=== PATIENT | female | born 1980 | race Caucasian/White ===

== ENCOUNTER 2017-04-21 12:13 | Emergency (ER) | payer BC, OTHER ==
--- NOTE | 2017-04-21 12:58 | ED ---
SOB HPI - General Chief Complaint: Shortness of Breath Stated Complaint: SOB/Hands Tingling Time Seen by Provider: 04/21/17 12:30 Source: patient Mode of arrival: ambulatory Limitations: no limitations - History of Present Illness MD Complaint: shortness of breath Onset/Timin -: hour(s) Severity: moderate Quality: other (Cannot take a deep breath) Consistency: constant Improves With: rest Worsens With: nothing Context: smoke/fume exposure Treatments Prior to Arrival: none - Related Data Home Oxygen Therapy: No Home Medications Medication Instructions Recorded Confirmed Fluconazole [Diflucan] 150 mg PO Q48H 04/21/17 04/21/17 Multivitamins, Thera [Multivitamin 1 tab PO DAILY 04/21/17 04/21/17 (formulary)] metroNIDAZOLE [Flagyl] 500 mg PO BID 04/21/17 04/21/17 Allergies Allergy/AdvReac Type Severity Reaction Status Date / Time No Known Allergies Allergy Verified 04/21/17 13:07 Review of Systems ROS Statement: Those systems with pertinent positive or pertinent negative responses have been documented in the HPI. ROS Other: All systems not noted in ROS Statement are negative. Respiratory: Reports: dyspnea Neurological: Reports: numbness (Patient states numbness in left hand) Past Medical History Additional Past Medical History / Comment(s): heart murmur History of Any Multi-Drug Resistant Organisms: None Reported Past Surgical History: Section Additional Past Surgical History / Comment(s): inguinal hernia, femoral hernia and mouth surgery. Past Psychological History: No Psychological Hx Reported Smoking Status: Never smoker Past Alcohol Use History: None Reported Past Drug Use History: None Reported General Exam Limitations: no limitations General appearance: alert, in no apparent distress, anxious Head exam: Present: atraumatic, normocephalic Eye exam: Present: normal appearance, PERRL, EOMI ENT exam: Present: mucous membranes moist Neck exam: Present: normal inspection Respiratory exam: Present: normal lung sounds bilaterally Cardiovascular Exam: Present: regular rate, normal rhythm GI/Abdominal exam: Present: soft Extremities exam: Present: normal inspection, full ROM, normal capillary refill Neurological exam: Present: alert, oriented X3, other (Patient does not demonstrate any focal neural deficit. Strenght and sensation are equal bilaterally in upper and lower extremities.) Psychiatric exam: Present: normal affect, normal mood Skin exam: Present: warm, dry, intact Course Vital Signs 04/21/17 04/21/17 04/21/17 12:15 13:00 13:03 Temperature 97.7 F Pulse Rate 70 62 Respiratory 20 16 16 Rate Blood Pressure 120/57 118/69 O2 Sat by Pulse 100 100 Oximetry Medical Decision Making - Medical Decision Making Patient is a 37-year-old female who presents with a chief complaint of shortness of breath after possible fume exposure at work. Patient works [place] [employer], states that she has been smelling she thinks is natural gas while at work. He states that she became short of breath while at work today gradually over time patient said he come to the emergency department when she started having tingling in her left hand. 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 At this time, the patient is Well's negative, and is low risk for cardiac etiology given age and minimal risk factors. Patient will have a chest x-ray, basic lab work, and a carboxyhemoglobin level. EKG performed at 1229 shows normal sinus rhythm with a rate of 60 bpm. Intervals appear to be within normal limits, EKG is otherwise nonspecific. Laboratory evaluation of this patient shows a negative carboxyhemoglobin level, all other labs are within normal limits. Chest x-ray fails to demonstrate any acute intrathoracic process. There is a note that given hyperinflation, this may be a sign of early emphysema however patient is not a smoker, and has minimal risk factors otherwise. Is brought to her attention, she can follow up with primary care regarding this issue. On reexamination, the patient states that her breathing feels normal again, and that the tingling in her hand is stopped. She is in no acute distress, appears well. Pulse oximetry still remains 100% on room air. Heart rate is 60 bpm, and regular. Results were discussed with her, she was instructed to follow-up with her primary care physician in 3-5 days, or to return to the emergency department if her symptoms worsen or change in anyway. - Lab Data Result diagrams: 04/21/17 13:06 04/21/17 13:06 Lab Results 04/21/17 04/21/17 04/21/17 Range/Units 13:06 13:06 13:06 WBC 7.6 (3.8-10.6) k/uL RBC 4.45 (3.80-5.40) m/uL Hgb 14.2 (11.4-16.0) gm/dL Hct 39.9 (34.0-46.0) % MCV 89.5 (80.0-100.0) fL MCH 31.9 (25.0-35.0) pg MCHC 35.6 (31.0-37.0) g/dL RDW 13.2 (11.5-15.5) % Plt Count 197 (150-450) k/uL Neutrophils % 50 % Lymphocytes % 36 % Monocytes % 5 % Eosinophils % 7 % Basophils % 1 % Neutrophils # 3.8 (1.3-7.7) k/uL Lymphocytes # 2.7 (1.0-4.8) k/uL Monocytes # 0.4 (0-1.0) k/uL Eosinophils # 0.5 (0-0.7) k/uL Basophils # 0.0 (0-0.2) k/uL Carbon Monoxide, Quant 1.7 (<10.0) % Sodium 141 (137-145) mmol/L Potassium 4.1 (3.5-5.1) mmol/L Chloride 106 (98-107) mmol/L Carbon Dioxide 26 (22-30) mmol/L Anion Gap 9 mmol/L BUN 17 (7-17) mg/dL Creatinine 0.67 (0.52-1.04) mg/dL Est GFR (MDRD) Af Amer >60 (>60 ml/min/1.73 sqM) Est GFR (MDRD) Non-Af >60 (>60 ml/min/1.73 sqM) Glucose 82 (74-99) mg/dL Calcium 9.6 (8.4-10.2) mg/dL - EKG Data EKG shows normal: sinus rhythm (EKG shows normal sinus rhythm with a rate of 60 bpm) Disposition Clinical Impression: Shortness of breath Disposition: HOME SELF-CARE Condition: Good Instructions: Bronchospasm (ED) Additional Instructions: Follow-up with her primary care doctor in 5-7 days. 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 Referrals: Edis Bettencourt MD [Primary Care Provider] - 1-2 days Time of Disposition: 13:55
[2017-04-21 13:03] VITALS: RESP 16
[2017-04-21 13:17] LABS: Basophils % (A) 1 %; CH 30.6; CHCM 34.3; Eosinophils # (A) 0.5 k/uL (0-0.7); Eosinophils % (A) 7 %; HCT 39.9 % (34.0-46.0); HGB 14.2 gm/dL (11.4-16.0); Luc # (Auto) 0.13; Luc % (Auto) 2; Lymphocytes # (A) 2.7 k/uL (1.0-4.8); Lymphocytes % (A) 36 %; MCH 31.9 pg (25.0-35.0); MCHC 35.6 g/dL (31.0-37.0); MCV 89.5 fL (80.0-100.0); Monocytes # (A) 0.4 k/uL (0-1.0); Monocytes % (A) 5 %; Neutrophils # (A) 3.8 k/uL (1.3-7.7); Neutrophils % (A) 50 %; RBC 4.45 m/uL (3.80-5.40); RDW 13.2 % (11.5-15.5); WBC 7.6 k/uL (3.8-10.6); WBC (Perox) 7.84
--- NOTE | 2017-04-21 13:25 | XR ---
EXAMINATION TYPE: XR chest 2V DATE OF EXAM: 04/21/2017 COMPARISON: NONE HISTORY: Shortness of breath today. TECHNIQUE: Frontal and lateral views of the chest are obtained. FINDINGS: Underlying emphysematous change is felt present with hyperinflation noted and mild apical p leural thickening seen bilaterally. There is no suspicious focal air space opacity, pleural effusion , or pneumothorax seen. The cardiac silhouette size is within normal limits. Slight scoliotic curvat ure lower thoracic spine is seen.. IMPRESSION: No acute cardiopulmonary process.
[2017-04-21 13:26] LABS: Anion Gap 9 mmol/L; Blood Urea Nitrogen 17 mg/dL (7-17); Calcium 9.6 mg/dL (8.4-10.2); Carbon Dioxide 26 mmol/L (22-30); Chloride 106 mmol/L (98-107); Glucose 82 mg/dL (74-99); Non-African American GFR(MDRD) >60 (>60 ml/min/1.73 sqM); Potassium 4.1 mmol/L (3.5-5.1); Sodium 141 mmol/L (137-145)
[2017-04-21 14:37] VITALS: BP 113/74; PULSE 63; TEMP 98.4
== END 2017-04-21 14:37 | disposition home or self-care (01) ==
LOC: EC 12:13
DX: R06.02 Shortness of breath (principal); Z79.899 Other long term (current) drug therapy; R20.0 Anesthesia of skin; J43.8 Other emphysema
CPT/HCPCS: 36415; 71020; 80048; 82375; 85025; 93005; 99284

== ENCOUNTER → 2017-04-29 | Outpatient (CLI) | payer OTHER | LOC: CPPFTMAIN 12:19 | PROVIDERS: ATTEND Family Medicine | DX: J98.8 Other specified respiratory disorders (principal) | CPT/HCPCS: 94060; 94726; 94729 ==

== ENCOUNTER 2017-10-02 11:28 | Emergency (ER) | payer OTHER ==
--- NOTE | 2017-10-02 12:20 | ED ---
General Adult HPI - General Chief complaint: Needlestick/Exposure Stated complaint: exposure [facility] Time Seen by Provider: 10/02/17 11:42 Source: patient, RN notes reviewed Mode of arrival: wheelchair Limitations: no limitations - History of Present Illness Initial comments: Patient is a 37-year-old female who presents emergency room today with chief complaint of feeling dizzy lightheaded. She does not that she works for [employer]. She states that she was in her boot and noticed a rotten egg smell. States that she was in the boot for approximately 40 minutes. She states she began having symptoms of lightheaded and dizzy. She states she's had this once before in the same bruise. Patient does have a coworker with her who states that they have been looking into this and have done multiple tests try to figure out what the smell is. He states that other employees have had similar symptoms at times. Patient states that happened to her a few months ago. Patient states to feeling dizzy lightheaded at this time. Also admits to heaviness to the chest. She denies any other complaints or associated symptoms. Patient denies any recent fever, chills, back pain, abdominal pain, nausea or vomiting, numbness or tingling, dysuria or hematuria, constipation or diarrhea, headaches or visual changes, or any other complaints. - Related Data Home Medications Medication Instructions Recorded Confirmed Multivitamins, Thera [Multivitamin 1 tab PO DAILY 04/21/17 10/02/17 (formulary)] Allergies Allergy/AdvReac Type Severity Reaction Status Date / Time codeine AdvReac Nausea & Verified 10/02/17 11:51 Vomiting Review of Systems ROS Statement: Those systems with pertinent positive or pertinent negative responses have been documented in the HPI. ROS Other: All systems not noted in ROS Statement are negative. Past Medical History Additional Past Medical History / Comment(s): heart murmur, control inplant History of Any Multi-Drug Resistant Organisms: None Reported Past Surgical History: Section, Hernia Repair Additional Past Surgical History / Comment(s): inguinal hernia, femoral hernia and mouth surgery. Past Psychological History: No Psychological Hx Reported Smoking Status: Never smoker Past Alcohol Use History: None Reported Past Drug Use History: None Reported General Exam - General Exam Comments Initial Comments: General: The patient is awake and alert, in no distress, and does not appear acutely ill. Eye: Pupils are equal, round and reactive to light, extra-ocular movements are intact. No nystagmus. There is normal conjunctiva bilaterally. No signs of icterus. Ears, nose, mouth and throat: There are moist mucous membranes and no oral lesions. Neck: The neck is supple, there is no tenderness or JVD. Cardiovascular: There is a regular rate and rhythm. No murmur, rub or gallop is appreciated. Respiratory: Lungs are clear to auscultation, respirations are non-labored, breath sounds are equal. No wheezes, stridor, rales, or rhonchi. Gastrointestinal: Soft, non-distended, non-tender abdomen without masses or organomegaly noted. There is no rebound or guarding present. No CVA tenderness. Bowel sounds are unremarkable. Musculoskeletal: Normal ROM, no tenderness. Strength 5/5. Sensation intact. Pulses equal bilaterally 2+. Neurological: A&O x 3. CN II-XII intact, There are no obvious motor or sensory deficits. Coordination appears grossly intact. Speech is normal. Skin: Skin is warm and dry and no rashes or lesions are noted. Psychiatric: Cooperative, appropriate mood & affect, normal judgment. Limitations: no limitations Course Vital Signs 10/02/17 10/02/17 11:33 12:43 Temperature 98.8 F Pulse Rate 71 57 L Respiratory 17 16 Rate Blood Pressure 139/86 120/70 O2 Sat by Pulse 100 100 Oximetry EKG Findings - EKG Comments: EKG Findings:: EKG performed at 1145: A 12-lead EKG was performed and interpreted by me as showing the following: Rate is 61, and rhythm is normal sinus. There are normal QRS complexes and normal R-wave progression. ST segments have no elevation or depression, and IA segments appear normal. Medical Decision Making - Medical Decision Making Patient reexamined at this time shows no signs of distress. She was put on a nonrebreather. She does admit that the oxygen improved her headache and her dizziness. She denies any complaints at this time. Her labs been reviewed. Carbon dioxide level I.7. Results were discussed with the patient. Remaining labs been reviewed unremarkable. At this time she is asymptomatic feeling well. Will be discharged home. Advised return here if any symptoms increase worsen or for any other concerns. - Lab Data Result diagrams: 10/02/17 12:20 10/02/17 12:20 Lab Results 10/02/17 10/02/17 10/02/17 Range/Units 12:20 12:20 12:20 WBC 8.2 (3.8-10.6) k/uL RBC 4.40 (3.80-5.40) m/uL Hgb 13.3 (11.4-16.0) gm/dL Hct 41.4 (34.0-46.0) % MCV 94.1 (80.0-100.0) fL MCH 30.3 (25.0-35.0) pg MCHC 32.1 (31.0-37.0) g/dL RDW 13.7 (11.5-15.5) % Plt Count 199 (150-450) k/uL Neutrophils % 52 % Lymphocytes % 35 % Monocytes % 5 % Eosinophils % 6 % Basophils % 1 % Neutrophils # 4.2 (1.3-7.7) k/uL Lymphocytes # 2.8 (1.0-4.8) k/uL Monocytes # 0.4 (0-1.0) k/uL Eosinophils # 0.5 (0-0.7) k/uL Basophils # 0.1 (0-0.2) k/uL Carbon Monoxide, Quant 1.7 (<10.0) % Sodium 141 (137-145) mmol/L Potassium 4.3 (3.5-5.1) mmol/L Chloride 104 (98-107) mmol/L Carbon Dioxide 27 (22-30) mmol/L Anion Gap 10 mmol/L BUN 14 (7-17) mg/dL Creatinine 0.72 (0.52-1.04) mg/dL Est GFR (MDRD) Af Amer >60 (>60 ml/min/1.73 sqM) Est GFR (MDRD) Non-Af >60 (>60 ml/min/1.73 sqM) Glucose 95 (74-99) mg/dL Calcium 9.8 (8.4-10.2) mg/dL Total Creatine Kinase (30-135) U/L CK-MB (CK-2) (0.0-2.4) ng/mL CK-MB (CK-2) Rel Index Troponin I (0.000-0.034) ng/mL 12/21/17 Range/Units 12:20 WBC (3.8-10.6) k/uL RBC (3.80-5.40) m/uL Hgb (11.4-16.0) gm/dL Hct (34.0-46.0) % MCV (80.0-100.0) fL MCH (25.0-35.0) pg MCHC (31.0-37.0) g/dL RDW (11.5-15.5) % Plt Count (150-450) k/uL Neutrophils % % Lymphocytes % % Monocytes % % Eosinophils % % Basophils % % Neutrophils # (1.3-7.7) k/uL Lymphocytes # (1.0-4.8) k/uL Monocytes # (0-1.0) k/uL Eosinophils # (0-0.7) k/uL Basophils # (0-0.2) k/uL Carbon Monoxide, Quant (<10.0) % Sodium (137-145) mmol/L Potassium (3.5-5.1) mmol/L Chloride (98-107) mmol/L Carbon Dioxide (22-30) mmol/L Anion Gap mmol/L BUN (7-17) mg/dL Creatinine (0.52-1.04) mg/dL Est GFR (MDRD) Af Amer (>60 ml/min/1.73 sqM) Est GFR (MDRD) Non-Af (>60 ml/min/1.73 sqM) Glucose (74-99) mg/dL Calcium (8.4-10.2) mg/dL Total Creatine Kinase 92 (30-135) U/L CK-MB (CK-2) 0.9 (0.0-2.4) ng/mL CK-MB (CK-2) Rel Index 1.0 Troponin I <0.012 (0.000-0.034) ng/mL Disposition Clinical Impression: Lightheaded Disposition: HOME SELF-CARE Condition: Good Instructions: Carbon Monoxide Poisoning (ED) Additional Instructions: Please follow-up with family doctor in the next 2 days of symptoms have not improved. Please return to emergency room if the symptoms increase or worsen or for any other concerns. Referrals: Edis Bettencourt MD [Primary Care Provider] - 1-2 days Time of Disposition: 13:23
[2017-10-02 12:55] LABS: Basophils # (A) 0.1 k/uL (0-0.2); Basophils % (A) 1 %; CH 31.1; CHCM 33.2; Eosinophils # (A) 0.5 k/uL (0-0.7); Eosinophils % (A) 6 %; HCT 41.4 % (34.0-46.0); HDW 2.16; HGB 13.3 gm/dL (11.4-16.0); Luc # (Auto) 0.19; Luc % (Auto) 2; Lymphocytes # (A) 2.8 k/uL (1.0-4.8); Lymphocytes % (A) 35 %; MCH 30.3 pg (25.0-35.0); MCHC 32.1 g/dL (31.0-37.0); MCV 94.1 fL (80.0-100.0); Mean Platelet Volume 7.9; Monocytes # (A) 0.4 k/uL (0-1.0); Monocytes % (A) 5 %; Neutrophils # (A) 4.2 k/uL (1.3-7.7); Neutrophils % (A) 52 %; RDW 13.7 % (11.5-15.5); WBC 8.2 k/uL (3.8-10.6); WBC (Perox) 8.13
[2017-10-02 12:57] LABS: Creatine Kinase 92 U/L (30-135)
[2017-10-02 12:58] LABS: Anion Gap 10 mmol/L; Blood Urea Nitrogen 14 mg/dL (7-17); Calcium 9.8 mg/dL (8.4-10.2); Carbon Dioxide 27 mmol/L (22-30); Chloride 104 mmol/L (98-107); Glucose 95 mg/dL (74-99); Non-African American GFR(MDRD) >60 (>60 ml/min/1.73 sqM); Potassium 4.3 mmol/L (3.5-5.1); Sodium 141 mmol/L (137-145)
[2017-10-02 13:09] LABS: Troponin I <0.012 ng/mL (0.000-0.034)
[2017-10-02 13:11] LABS: Creatine Kinase MB 0.9 ng/mL (0.0-2.4)
[2017-10-02 13:59] VITALS: BP 133/69; PULSE 65; RESP 18; TEMP 97.1
== END 2017-10-02 13:57 | disposition home or self-care (01) ==
LOC: EC 11:28
DX: R42 Dizziness and giddiness (principal); Z79.899 Other long term (current) drug therapy; Z88.5 Allergy status to narcotic agent
CPT/HCPCS: 36415; 80048; 82375; 82550; 82553; 84484; 85025; 93005; 99284

== ENCOUNTER → 2017-11-06 | Outpatient (CLI) | payer OTHER ==
--- NOTE | 2017-11-07 15:41 | MR ---
EXAMINATION TYPE: MR brain wo/w con DATE OF EXAM: 11/06/2017 COMPARISON: NONE HISTORY: Equilibrium/Dizziness /Cognitive Changes TECHNIQUE: Multiplanar, multisequence images of the brain and brainstem is performed without and with IV contras t, utilizing 6.5 mL intravenous Gadavist . FINDINGS: Diffusion weighted images demonstrate no evidence of a recent infarct or other diffusion ab normality. There is no extra-axial fluid collection. Single right frontal lobe 0.4 x 0.4 cm focus of T2/FLAIR hyperintensity is seen that is nonenhancing. No surrounding vasogenic edema. The ventricula r system and cisternal spaces are normal in size and appearance. The brain volume is age appropriate . Midline structures demonstrate normal morphology. The craniocervical junction appears within normal limits. Post contrast images demonstrate no abnormal intracranial enhancement. The dural venous sinu ses appear patent. Minimal ethmoidal mucosal thickening is seen. The remaining visualized sinuses are clear and the globes are intact. Partially visualized peripherally T2/IR hyperintense and centrally hypointense 1.2 x 1.0 cm periphera lly enhancing and centrally nonenhancing lesion is seen near the right palatine tonsil on FLAIR fat s at axial image 1 and postcontrast T1 fat sat axial image 1. IMPRESSION: 1. Solitary right frontal lobe nonenhancing white matter lesion. This finding is nonspecific although primary diagnostic consideration given the patient's age and distribution are for sequela of migrain es, microangiopathy/vasculitis, and less likely demyelinating disease. 2. Enhancing cystic mass at the right palatine tonsil, partially visualized measuring 1.2 x 1.0 cm. C onsiderations are for tonsillar abscess, cystic neoplasm such as cavitary squamous cell carcinoma or minor salivary gland tumor, or centrally necrotic adenopathy. Direct visualization is recommended.
== END | disposition home or self-care (01) ==
LOC: RADMRIMAIN 08:14
PROVIDERS: ATTEND Family Medicine
DX: R90.82 White matter disease, unspecified (principal); R41.82 Altered mental status, unspecified
CPT/HCPCS: 70553; A9581

== ENCOUNTER 2018-06-11 19:56 | Observation (INO) | payer BC, OTHER ==
[2018-06-11] MEDS ORDERED: MORPHINE SULFATE 4 MG/ML SYRINGE IV STA (21:27)
[2018-06-11] MEDS ORDERED: KETOROLAC 30 MG/ML 1 ML VIAL IVP STA (21:27)
--- NOTE | 2018-06-11 21:31 | ED ---
Abdominal Pain HPI - General Chief Complaint: Abdominal Pain Stated Complaint: abdominal pain/leg pain/hernia Time Seen by Provider: 06/11/18 21:08 Source: patient Mode of arrival: ambulatory Limitations: no limitations - History of Present Illness Initial Comments: This patient is a 38-year-old woman who presents to be evaluated for which she suspects is a strangulate hernia. She states she has had this twice previously , requiring surgery in 2000 and again in 2013 which were performed at [facility] by a surgeon who has subsequently retired. She states she was working this afternoon when she started having some low abdominal pain. She later noted that there was a bulge in the right groin and the pain was becoming more intense so she presented here. She states she has also had some nausea and she has been having the urge to have bowel movement couple of times. MD Complaint: abdominal pain -: hour(s) Location: RLQ Radiation: none Migration to: no migration Severity: moderate Quality: aching Consistency: constant Improves With: nothing Worsens With: movement, other Associated Symptoms: nausea (Patient) - Related Data Patient : No (Has nexplanon implant) Home Medications Medication Instructions Recorded Confirmed Cetirizine HCl [Zyrtec] 10 mg PO DAILY PRN 06/11/18 06/11/18 Previous Rx's Medication Instructions Recorded traMADol HCl [Ultram] 50 mg PO Q6H PRN #12 tab 06/12/18 Allergies Allergy/AdvReac Type Severity Reaction Status Date / Time codeine AdvReac Nausea & Verified 06/11/18 21:37 Vomiting Review of Systems ROS Statement: Those systems with pertinent positive or pertinent negative responses have been documented in the HPI. ROS Other: All systems not noted in ROS Statement are negative. Constitutional: Denies: fever, chills Respiratory: Denies: cough, dyspnea Cardiovascular: Denies: chest pain, edema Gastrointestinal: Reports: abdominal pain, nausea, diarrhea. Denies: vomiting, constipation, hematemesis, melena, hematochezia Genitourinary: Denies: dysuria, hematuria, abnormal menses Musculoskeletal: Denies: back pain Skin: Denies: rash Neurological: Denies: headache Past Medical History Additional Past Medical History / Comment(s): heart murmur, control inplant History of Any Multi-Drug Resistant Organisms: None Reported Past Surgical History: Section, Hernia Repair Additional Past Surgical History / Comment(s): inguinal hernia, femoral hernia and mouth surgery. Past Psychological History: No Psychological Hx Reported Smoking Status: Never smoker Past Alcohol Use History: None Reported Past Drug Use History: None Reported - Past Family History Mother Family Medical History: Seizure Disorder Father Additional Family Medical History / Comment(s): hernia, scoliosis, alcoholism General Exam Limitations: no limitations General appearance: alert, in no apparent distress Eye exam: Present: normal appearance. Absent: scleral icterus, conjunctival injection ENT exam: Present: normal oropharynx Respiratory exam: Present: normal lung sounds bilaterally. Absent: respiratory distress, wheezes, rales, rhonchi, stridor Cardiovascular Exam: Present: regular rate, normal rhythm, normal heart sounds. Absent: systolic murmur, diastolic murmur, rubs, gallop GI/Abdominal exam: Present: soft, tenderness (In the right inguinal area), normal bowel sounds, hernia (Right inguinal). Absent: distended, guarding, rebound, rigid, organomegaly, mass, pulsatile mass Extremities exam: Present: normal inspection, normal capillary refill. Absent: pedal edema, calf tenderness Back exam: Present: normal inspection. Absent: CVA tenderness (R), CVA tenderness (L) Neurological exam: Present: alert Skin exam: Present: warm, dry, intact, normal color. Absent: rash Course Vital Signs 06/11/18 06/11/18 06/11/18 20:41 23:19 23:32 Temperature 99.2 F 98.5 F Pulse Rate 66 64 Pulse Rate [ 62 Pulse Oximetery ] Respiratory 16 18 16 Rate Blood Pressure 111/74 114/65 Blood Pressure 119/71 [Left Arm] O2 Sat by Pulse 100 99 100 Oximetry Medical Decision Making - Medical Decision Making This patient is a 38-year-old woman presenting with incarcerated right femoral hernia. I did attempt to reduce it at the bedside but was unable to as the patient cannot tolerate the pain associated with pressure at the hernia. Discussed the case with Dr. Molina who is the surgeon on tonight and admit the patient for possible OR tomorrow. Patient nothing by mouth. She has had good symptom relief with analgesia here. - Lab Data Result diagrams: 06/11/18 21:32 06/11/18 21:32 Lab Results 06/11/18 06/11/18 06/11/18 Range/Units 21:32 21:32 21:32 WBC (3.8-10.6) k/uL RBC (3.80-5.40) m/uL Hgb (11.4-16.0) gm/dL Hct (34.0-46.0) % MCV (80.0-100.0) fL MCH (25.0-35.0) pg MCHC (31.0-37.0) g/dL RDW (11.5-15.5) % Plt Count (150-450) k/uL Neutrophils % % Lymphocytes % % Monocytes % % Eosinophils % % Basophils % % Neutrophils # (1.3-7.7) k/uL Lymphocytes # (1.0-4.8) k/uL Monocytes # (0-1.0) k/uL Eosinophils # (0-0.7) k/uL Basophils # (0-0.2) k/uL Sodium 140 (137-145) mmol/L Potassium 3.8 (3.5-5.1) mmol/L Chloride 104 (98-107) mmol/L Carbon Dioxide 27 (22-30) mmol/L Anion Gap 9 mmol/L BUN 18 H (7-17) mg/dL Creatinine 0.70 (0.52-1.04) mg/dL Est GFR (CKD-EPI)AfAm >90 (>60 ml/min/1.73 sqM) Est GFR (CKD-EPI)NonAf >90 (>60 ml/min/1.73 sqM) Glucose 99 (74-99) mg/dL Plasma Lactic Acid José Miguel (0.7-2.0) mmol/L Calcium 9.3 (8.4-10.2) mg/dL Total Bilirubin 0.3 (0.2-1.3) mg/dL AST 33 (14-36) U/L ALT 40 (9-52) U/L Alkaline Phosphatase 78 (38-126) U/L Total Protein 6.6 (6.3-8.2) g/dL Albumin 3.9 (3.5-5.0) g/dL Amylase 60 (30-110) U/L Lipase 117 (23-300) U/L Urine Color Yellow Urine Appearance Clear (Clear) Urine pH 6.0 (5.0-8.0) Ur Specific [place] 1.019 (1.001-1.035) Urine Protein Trace H (Negative) Urine Glucose (UA) Negative (Negative) Urine Ketones Negative (Negative) Urine Blood Negative (Negative) Urine Nitrite Negative (Negative) Urine Bilirubin Negative (Negative) Urine Urobilinogen <2.0 (<2.0) mg/dL Ur Leukocyte Esterase Negative (Negative) Urine HCG, Qual Not Detected (Not Detectd) 06/11/18 06/11/18 Range/Units 21:32 21:32 WBC 11.7 H (3.8-10.6) k/uL RBC 4.47 (3.80-5.40) m/uL Hgb 13.7 (11.4-16.0) gm/dL Hct 40.7 (34.0-46.0) % MCV 90.9 (80.0-100.0) fL MCH 30.6 (25.0-35.0) pg MCHC 33.7 (31.0-37.0) g/dL RDW 12.7 (11.5-15.5) % Plt Count 197 (150-450) k/uL Neutrophils % 60 % Lymphocytes % 28 % Monocytes % 4 % Eosinophils % 5 % Basophils % 1 % Neutrophils # 7.1 (1.3-7.7) k/uL Lymphocytes # 3.3 (1.0-4.8) k/uL Monocytes # 0.5 (0-1.0) k/uL Eosinophils # 0.6 (0-0.7) k/uL Basophils # 0.1 (0-0.2) k/uL Sodium (137-145) mmol/L Potassium (3.5-5.1) mmol/L Chloride (98-107) mmol/L Carbon Dioxide (22-30) mmol/L Anion Gap mmol/L BUN (7-17) mg/dL Creatinine (0.52-1.04) mg/dL Est GFR (CKD-EPI)AfAm (>60 ml/min/1.73 sqM) Est GFR (CKD-EPI)NonAf (>60 ml/min/1.73 sqM) Glucose (74-99) mg/dL Plasma Lactic Acid José Miguel 0.7 (0.7-2.0) mmol/L Calcium (8.4-10.2) mg/dL Total Bilirubin (0.2-1.3) mg/dL AST (14-36) U/L ALT (9-52) U/L Alkaline Phosphatase (38-126) U/L Total Protein (6.3-8.2) g/dL Albumin (3.5-5.0) g/dL Amylase (30-110) U/L Lipase (23-300) U/L Urine Color Urine Appearance (Clear) Urine pH (5.0-8.0) Ur Specific [place] (1.001-1.035) Urine Protein (Negative) Urine Glucose (UA) (Negative) Urine Ketones (Negative) Urine Blood (Negative) Urine Nitrite (Negative) Urine Bilirubin (Negative) Urine Urobilinogen (<2.0) mg/dL Ur Leukocyte Esterase (Negative) Urine HCG, Qual (Not Detectd) Disposition Clinical Impression: Incarcerated femoral hernia Disposition: [facility] Condition: Fair
[2018-06-11 21:42] LABS: Appearance,Urine Clear (Clear); Basophils # (A) 0.1 k/uL (0-0.2); Basophils % (A) 1 %; Bilirubin,Urine Negative (Negative); Blood,Urine Negative (Negative); Color,Urine Yellow; Eosinophils # (A) 0.6 k/uL (0-0.7); Eosinophils % (A) 5 %; Glucose,Urine (UA) Negative (Negative); HCT 40.7 % (34.0-46.0); HGB 13.7 gm/dL (11.4-16.0); Ketones,Urine Negative (Negative); Leukocyte Esterase,Urine Negative (Negative); Lymphocytes # (A) 3.3 k/uL (1.0-4.8); Lymphocytes % (A) 28 %; MCH 30.6 pg (25.0-35.0); MCHC 33.7 g/dL (31.0-37.0); MCV 90.9 fL (80.0-100.0); Mean Platelet Volume 7.2; Monocytes # (A) 0.5 k/uL (0-1.0); Monocytes % (A) 4 %; Neutrophils # (A) 7.1 k/uL (1.3-7.7); Neutrophils % (A) 60 %; Nitrite,Urine Negative (Negative); Platelet Count 197 k/uL (150-450); Protein,Urine Trace (Negative); RBC 4.47 m/uL (3.80-5.40); RDW 12.7 % (11.5-15.5); Specific Gravity,Urine 1.019 (1.001-1.035); Urobilinogen,Urine <2.0 mg/dL (<2.0); WBC 11.7 k/uL (3.8-10.6)
[2018-06-11 21:55] LABS: ALT 40 U/L (9-52); AST 33 U/L (14-36); Albumin 3.9 g/dL (3.5-5.0); Alkaline Phosphatase 78 U/L (38-126); Amylase 60 U/L (30-110); Anion Gap 9 mmol/L; Blood Urea Nitrogen 18 mg/dL (7-17); Calcium 9.3 mg/dL (8.4-10.2); Carbon Dioxide 27 mmol/L (22-30); Chloride 104 mmol/L (98-107); Glucose 99 mg/dL (74-99); Lipase 117 U/L (23-300); Potassium 3.8 mmol/L (3.5-5.1); Sodium 140 mmol/L (137-145); Total Bilirubin 0.3 mg/dL (0.2-1.3); Total Protein 6.6 g/dL (6.3-8.2)
[2018-06-11] MEDS ORDERED: SODIUM CHLORIDE 0.9% 1,000 ML IV STA (21:55)
--- NOTE | 2018-06-11 23:01 | CT ---
EXAMINATION TYPE: CT abdomen pelvis wo con DATE OF EXAM: 06/11/2018 COMPARISON: None HISTORY: RLQ pain. CT DLP: 710 mGycm Automated exposure control for dose reduction was used. TECHNIQUE: Helical acquisition of images was performed from the lung bases through the pelvis. FINDINGS: Lung bases are clear of consolidation. There is no pleural effusion. There is no pericardial effusion . Liver shows no focal defect. Spleen appears normal. There is no sign of a pancreatic mass. Bile ducts are not dilated. Gallbladder appears normal. There is no ascites. There is no adrenal mass. Kidneys have normal size and contour. There is no hydronephrosis. There is no evidence of retroperito lynette adenopathy. Bladder distends smoothly. There is no sign of a pelvic mass. Uterus is anteverted. Bony structures appear intact. I see no intestinal wall thickening. There is no evidence of a bowel o bstruction. Appendix is not definitely seen. There is no sign of appendicitis. IMPRESSION: NO RENAL STONE OR OBSTRUCTION. THERE IS NO SIGN OF APPENDICITIS. No sign of acute abdomen and pelvis.
[2018-06-11] MEDS ORDERED: ONDANSETRON 4 MG/2 ML VIAL IVP PRN (23:18)
[2018-06-11] MEDS ORDERED: MORPHINE SULFATE 4 MG/ML SYRINGE IV PRN (23:18)
[2018-06-11] MEDS ORDERED: NALOXONE 0.4 MG/ML 1 ML VIAL IV PRN (23:18)
[2018-06-12 00:30] VITALS: RESP 16; BMI 23.1
[2018-06-12] MEDS: SODIUM CHLORIDE 0.9% 1,000 ML IV SCH ×2 (00:33→07:41)
--- NOTE | 2018-06-12 07:39 | P.GSHP ---
History of Present Illness H&P Date: 06/12/18 Chief Complaint: Right groin pain 38-year-old female presents to the ER last night with pain right groin. She felt a gurgling sensation in the groin. No nausea or vomiting. Appetite diminished. History of previous left femoral and right inguinal hernia repaired in the past. These were both repaired open the inguinal in 2001 and the left femoral approximately 5 years ago. In the ER last night this hernia was nonreducible. CAT scan showed a bowel loop present within the femoral hernia quite large actually. Patient states that while she was sleeping and must have reduced itself because she is unable to feel it for the most part at this time. - Review of Systems Comment: The patient denies any acute changes in vision or hearing, no dysphagia or odynophagia, no chest pain or shortness of breath, no dysuria or hematuria, no headache, no runny nose, no rectal bleeding or melena, no unexplained weight loss Past Medical History Additional Past Medical History / Comment(s): heart murmur, control inplant History of Any Multi-Drug Resistant Organisms: None Reported Past Surgical History: Section, Hernia Repair Additional Past Surgical History / Comment(s): inguinal hernia, femoral hernia and mouth surgery. Past Anesthesia/Blood Transfusion Reactions: No Reported Reaction Past Psychological History: No Psychological Hx Reported Smoking Status: Never smoker Past Alcohol Use History: None Reported Past Drug Use History: None Reported - Past Family History Mother Family Medical History: Seizure Disorder Father Additional Family Medical History / Comment(s): hernia, scoliosis, alcoholism Medications and Allergies Home Medications Medication Instructions Recorded Confirmed Type Cetirizine HCl [Zyrtec] 10 mg PO DAILY PRN 06/11/18 06/11/18 History Allergies Allergy/AdvReac Type Severity Reaction Status Date / Time codeine AdvReac Nausea & Verified 06/11/18 21:37 Vomiting Surgical - Exam Vital Signs Temp Pulse Resp BP Pulse Ox 99.2 F 66 16 111/74 100 06/11/18 20:41 06/11/18 20:41 06/11/18 20:41 06/11/18 20:41 06/11/18 20:41 Physical exam: General: Well-developed, well-nourished HEENT: Normocephalic, sclerae nonicteric Abdomen: Nontender, nondistended, fullness right femoral region but quite soft and nontender at this time Extremities: No edema Neuro: Alert and oriented Results - Labs 06/11/18 21:32 06/11/18 21:32 Abnormal Lab Results - Last 24 Hours (Table) 06/11/18 06/11/18 06/11/18 Range/Units 21:32 21:32 21:32 WBC 11.7 H (3.8-10.6) k/uL BUN 18 H (7-17) mg/dL Urine Protein Trace H (Negative) Diabetes panel 06/11/18 Range/Units 21:32 Sodium 140 (137-145) mmol/L Potassium 3.8 (3.5-5.1) mmol/L Chloride 104 (98-107) mmol/L Carbon Dioxide 27 (22-30) mmol/L BUN 18 H (7-17) mg/dL Creatinine 0.70 (0.52-1.04) mg/dL Glucose 99 (74-99) mg/dL Calcium 9.3 (8.4-10.2) mg/dL AST 33 (14-36) U/L ALT 40 (9-52) U/L Alkaline Phosphatase 78 (38-126) U/L Total Protein 6.6 (6.3-8.2) g/dL Albumin 3.9 (3.5-5.0) g/dL Calcium panel 06/11/18 Range/Units 21:32 Calcium 9.3 (8.4-10.2) mg/dL Albumin 3.9 (3.5-5.0) g/dL Pituitary panel 06/11/18 Range/Units 21:32 Sodium 140 (137-145) mmol/L Potassium 3.8 (3.5-5.1) mmol/L Chloride 104 (98-107) mmol/L Carbon Dioxide 27 (22-30) mmol/L BUN 18 H (7-17) mg/dL Creatinine 0.70 (0.52-1.04) mg/dL Glucose 99 (74-99) mg/dL Calcium 9.3 (8.4-10.2) mg/dL Adrenal panel 06/11/18 Range/Units 21:32 Sodium 140 (137-145) mmol/L Potassium 3.8 (3.5-5.1) mmol/L Chloride 104 (98-107) mmol/L Carbon Dioxide 27 (22-30) mmol/L BUN 18 H (7-17) mg/dL Creatinine 0.70 (0.52-1.04) mg/dL Glucose 99 (74-99) mg/dL Calcium 9.3 (8.4-10.2) mg/dL Total Bilirubin 0.3 (0.2-1.3) mg/dL AST 33 (14-36) U/L ALT 40 (9-52) U/L Alkaline Phosphatase 78 (38-126) U/L Total Protein 6.6 (6.3-8.2) g/dL Albumin 3.9 (3.5-5.0) g/dL Assessment and Plan (1) Incarcerated femoral hernia Narrative/Plan: Patient's incarcerated femoral hernia has reduced itself spontaneously. Patient prefers to have this repaired at this time in an effort to prevent a recurrent presentation in the next several days. We'll proceed with open repair with mesh. Risks of bleeding infection and bowel injury DVT recurrence seroma bladder injury numbness chronic pain were reviewed. She understands and wishes to proceed. Current Visit: Yes Status: Acute Code(s): K41.30 - UNIL FEMORAL HERNIA, W OBST, W/O GANGRENE, NOT SPCF RECUR SNOMED Code(s): 699489097
[2018-06-12] MEDS ORDERED: ACETAMINOPHEN IV (For NPO) 1,000 MG in EMPTY BAG 1 BAG IVPB ONE (11:30)
[2018-06-12] MEDS ORDERED: IV FLUID CONTINUATION 1,000 ML IV ONE (13:28)
[2018-06-12] MEDS: LACTATED RINGERS 1,000 ML IV ONE ×3 (13:38→17:50)
[2018-06-12] MEDS ORDERED: SCOPOLAMINE 1.5MG/72HR PATCH TRANSDERM ONE (13:43)
[2018-06-12] MEDS ORDERED: DEXAMETHASONE SOD PHOSPHATE 10 MG/ML 1 ML VIAL IV ONE (14:01)
[2018-06-12] MEDS ORDERED: MIDAZOLAM 2 MG/2 ML VIAL IVP ONE (14:35)
[2018-06-12] MEDS ORDERED: HEPARIN SODIUM,PORCINE 5,000 UNIT/ML 1 ML VIAL SQ ONE (14:37)
[2018-06-12] MEDS ORDERED: ceFAZolin IN SWFI 2 GM/20 ML SYRINGE IVP ONE (14:45)
--- NOTE | 2018-06-12 14:54 | P.ONQ ---
Anesthesiology Proc Note - PNB - Peripheral Nerve Block Performed Right Transversus Abdominis Single Time Out Performed: Yes Procedure Start Time: 14:22 Procedure Stop Time: 14: Indication: Acute Post-Operative Pain, Requested by physician Specifically requested for management of pain by DrJoss: Abiodun Molina Sedation Type: Sedate with meaningful contact maintained Preparation: Sterile Prep Position: Supine Catheter: None Needle Types: On-Q Needle Size: 50mm (2") Needle Gauge: 20 Technique: Ultrasound Injectate: 0.5% Ropivacaine (see comment for volume) (20ml plus 10ml of sterile water) Blood Aspirated: No Pain Paresthesia on Injection Noted: No Resistance on Injection: Normal Events: Uneventful and Well Tolerated
[2018-06-12] MEDS ORDERED: ROPIVACAINE 5 MG/ML 30 ML VIAL MISCELLANE ONE (14:57)
[2018-06-12] MEDS ORDERED: LIDOCAINE 1% INJ 10MG/ML (20 ML MDV) ONE (15:04)
[2018-06-12] MEDS ORDERED: fentaNYL (PF) 50 MCG/ML 2 ML AMP ONE (15:04)
[2018-06-12] MEDS ORDERED: PROPOFOL 10 MG/ML 20 ML VIAL IV ONE (15:04)
[2018-06-12] MEDS ORDERED: MIDAZOLAM 2 MG/2 ML VIAL ONE (15:04)
[2018-06-12] MEDS ORDERED: LACTATED RINGERS 1,000 ML IV ONE (16:28)
[2018-06-12] MEDS ORDERED: traMADol 50 MG TAB PO PRN (17:09)
--- NOTE | 2018-06-12 17:15 | P.OP ---
Date of Procedure: 06/12/18 Procedure(s) Performed: PREOPERATIVE DIAGNOSIS: Right femoral hernia hernia POSTOPERATIVE DIAGNOSIS: Recurrent right femoral hernia PROCEDURE: Right femoral hernia repair with mesh SURGEON: Jesse EBL: Minimal ANESTHESIA: General COMPLICATIONS: None OPERATIVE PROCEDURE: Patient was placed in the operating table in the supine position and placed under general anesthesia. An oblique incision was made in the right groin through the previous incision site. Dissection down through the subcutaneous tissues took place using electrocautery. The external oblique fascia was identified and I dissected inferiorly towards the folding edge of the inguinal ligament. In that area there were previous Prolene sutures. It appeared that the patient instead of having had a previous right inguinal hernia in fact did have a previous right femoral hernia repaired. There was no mesh identified. The femoral hernia was identified. The sac was fairly large with some mild induration. There was no bowel contents within the hernia sac. The sac was carefully dissected back to the femoral ring. The vein was dissected and clearly identified just lateral and actually somewhat anterior to the femoral canal. I took a 3" x 6" Prolene mesh and created a small cylindrical shaped plug that measured approximately 4 cm in length and 8-10 mm in width. This was placed in the femoral canal reducing the sac completely. The sac itself was not excised. The mesh was then sutured in place posteriorly to the pectineal ligament. Medially the mesh was sutured to the lacunar ligament. Anteriorly the mesh was sutured to the folding edge of the inguinal ligament. This appropriately close this space. With Valsalva the hernia sac was noted to remain within the preperitoneal space and no residual hernia was seen. The area was irrigated with saline. No bleeding was seen. The subcutaneous tissues were reapproximated using a 3-0 Vicryl sutures. The skin was closed using 4-0 Monocryl sutures. Steri-Strips and sterile dressings were then applied. DISPOSITION: Stable to recovery room
[2018-06-12 17:39] VITALS: TEMP 97.9
--- NOTE | 2018-06-12 19:31 | P.DS ---
Providers Date of admission: 06/11/18 23:16 Attending physician: Abiodun Molina Primary care physician: Edis Bettencourt - Discharge Diagnosis(es) (1) Incarcerated femoral hernia Patient minute last night for an incarcerated femoral hernia. This morning the hernia was noted to be reduced spontaneously. She underwent operative repair of what turned out to be a recurrent femoral hernia this afternoon. This evening she is doing well and wishes to go home. She will be discharged home with a prescription for Ultram. She will follow-up in 1 week. Current Visit: Yes Status: Acute Patient Condition at Discharge: Fair Plan - Discharge Summary Discharge Rx Participant: Yes New Discharge Prescriptions: New traMADol HCl [Ultram] 50 mg PO Q6H PRN #12 tab PRN Reason: Pain No Action Cetirizine HCl [Zyrtec] 10 mg PO DAILY PRN PRN Reason: Allergy Symptoms Discharge Medication List Cetirizine HCl [Zyrtec] 10 mg PO DAILY PRN 06/11/18 [History] traMADol HCl [Ultram] 50 mg PO Q6H PRN #12 tab 06/12/18 [Rx] Follow up Appointment(s)/Referral(s): Abiodun Molina MD [Medical Doctor] - 1 Week Edis Bettencourt MD [Primary Care Provider] - 1-2 days
[2018-06-12 20:00] VITALS: BP 109/62; PULSE 63
== END 2018-06-12 20:06 | disposition home or self-care (01) ==
LOC: EC 19:56 → 3SUR 23:16
PROVIDERS: ADMIT Surgery; ATTEND Surgery
DX: K41.31 Unilateral femoral hernia, with obstruction, without gangrene, recurrent (principal); R01.1 Cardiac murmur, unspecified; Z88.5 Allergy status to narcotic agent; Z79.899 Other long term (current) drug therapy; Z87.19 Personal history of other diseases of the digestive system; Z82.0 Family history of epilepsy and other diseases of the nervous system; Z81.1 Family history of alcohol abuse and dependence; Z82.69 Family history of other diseases of the musculoskeletal system and connective tissue; Z83.79 Family history of other diseases of the digestive system
CPT/HCPCS: 99285 ×2; 96374 ×2; 96375 ×3; 96361 ×3; 49555; 96376; 36415; 81025 ×2; 80053; 82150; 83605; 83690; 85025; 81003; 74176; G0378 ×2; C1781; J2250; J2270 ×2; J1644; J1100; J2405; J2001; J3010; J1885; J2795; J0131; J2704; J0690

== ENCOUNTER → 2019-09-13 | Outpatient (CLI) | payer BC ==
--- NOTE | 2019-09-14 04:55 | CT ---
EXAMINATION TYPE: CT chest w con DATE OF EXAM: 09/13/2019 COMPARISON: None HISTORY: 39-year-old female sarcoidosis TECHNIQUE: Contiguous axial scanning of the chest after the administration of 100 mL of Isovue 300. Coronal/sagittal reconstructions performed. CT DLP: 391mGycm. Automatic exposure control utilized for a dose reduction. FINDINGS: Heart normal size without pericardial effusion. Aorta normal caliber with no charge was a branching anatomy. No thoracic lymphadenopathy by CT size criteria. Biapical pleural-parenchymal scarring. 5 mm groundglass pulmonary nodule peripheral right midlung, axial image 24. No thickening of the bron chovascular bundles or perilymphatic nodularity. No consolidation or pleural effusion. Visualized upper abdomen shows a subcentimeter, 7 mm cortical hypodensity medial upper pole right kid anali too small for accurate CT characterization, likely tiny cortical cyst. Small posterior fundal gas tric diverticulum. Tiny posterior splenule. Bones: No osseous destructive process. IMPRESSION: 1. Some biapical pleural-parenchymal scarring could potentially reflect sequela of pulmonary sarcoido sis. However, there is no mediastinal/hilar lymphadenopathy, pulmonary cystic change, thickening of t he bronchovascular bundles, perilymphatic nodularity, or other specific findings of pulmonary sarcoid osis at this time. 2. A solitary 5 mm groundglass nodule right midlung is nonspecific, probably a small infectious/infla mmatory focus. Per Fleischner guidelines, no follow-up is needed.
== END ==
LOC: RADCTMAIN 16:17
PROVIDERS: ATTEND Family Medicine
DX: J94.8 Other specified pleural conditions (principal); R91.1 Solitary pulmonary nodule; D86.0 Sarcoidosis of lung
CPT/HCPCS: 81025; 71260; Q9967